=== PATIENT | male | born 1935 | race Caucasian/White ===

== ENCOUNTER → 2016-08-25 | Outpatient (CLI) | payer MEDICARE, OTHER | END | disposition home or self-care (01) | LOC: RESC 08-24 11:17 | DX: R06.02 Shortness of breath (principal) ==

== ENCOUNTER → 2016-09-07 | Outpatient (CLI) | payer MEDICARE, OTHER | END | disposition home or self-care (01) | LOC: PTH.S 16:00 → RAD.S 16:18 | DX: R07.89 Other chest pain (principal); R06.00 Dyspnea, unspecified; R91.8 Other nonspecific abnormal finding of lung field; I51.7 Cardiomegaly ==